=== PATIENT | male | born 1970 | race Caucasian/White ===

== ENCOUNTER 2016-11-02 08:08 | Emergency (ER) | payer OTHER ==
[2016-11-02] MEDS ORDERED: NITROGLYCERIN ONE (08:20)
[2016-11-02] MEDS ORDERED: HEPARIN ONE (08:20)
[2016-11-02 08:26] LABS: MANUAL DIFF NEEDED? NO
--- NOTE | 2016-11-02 08:26 | PROVIDER DOCUMENTATION ---
HPI-Chest Pain - General Chief Complaint: Chest Pain Stated Complaint: CHEST PAIN Time Seen by Provider: 11/02/16 08:20 Source: patient, family Allergies/Adverse Reactions: Patient Allergies Allergy/AdvReac Type Severity Reaction Status Date / Time No Known Allergies Allergy Verified 11/02/16 08:14 Home Medications: Home Medication List Medication Instructions Recorded Confirmed Last Taken Type ATORVAstatin [Lipitor] 40 mg PO DAILY 08/12/12 11/02/16 08/12/12 07:00 History Aspirin 81 mg PO DAILY 08/12/12 11/02/16 11/02/16 History Omeprazole [Prilosec] 20 mg PO DIRECTED 08/12/12 11/02/16 11/02/16 History - History of Present Illness-CP Nature of Presenting Problem: 30 minutes of chest pain 3 ntg also left arm getting better Location: reports: substernal Chest Pain Radiation: reports: arms Quality of Pain: reports: aching Severity in ED: moderate Onset/Duration: 1/2 hour ago Timing: still present, improving Context/Activities at Onset: reports: none Modifying Factors: improves with: other medication (ntg) Associated Symptoms: reports: diaphoresis, shortness of breath Nitro Today/Relief: 0.4 mg x 3 Aspirin Treatment Today: 325 mg x 1 Prior Chest Pain/Cardiac Workup: reports: heart attack Similar Symptoms Previously?: Yes Recently Seen Here or By Another Healthcare Provider: No Review of Systems - Adult - REVIEW OF SYSTEMS - ADULT Constitutional: reports: no symptoms reported Eyes: reports: no symptoms reported Ears, Nose, Mouth & Throat: reports: no symptoms reported Cardiovascular: reports: chest pain Respiratory: reports: shortness of breath Gastrointestinal: reports: no symptoms reported. denies: nausea Genitourinary: reports: no symptoms reported Musculoskeletal: reports: no symptoms reported Integumentary: reports: no symptoms reported Neurological: reports: no symptoms reported Psychiatric: reports: no symptoms reported Endocrine: reports: no symptoms reported Hematologic/Lymphatic: reports: no symptoms reported Past History - Adult - PAST MEDICAL HISTORY-ADULT Review of Records: reports: Nursing Assessment Review, Medications Reviewed, Social history reviewed & non-contributory. Major Childhood Illnesses: reports: denies history Cardiovascular: reports: cardiac disease, angina, CAD, HTN, hyperlipidemia Respiratory: reports: COPD Gastrointestinal: reports: denies history Genitourinary: reports: denies history Musculoskeletal: reports: denies history Neurological: reports: denies history Psychiatric: reports: denies history Endocrine/Immune: reports: denies history Other Conditions: reports: denies history - PRIOR SURGERIES/PROCEDURES Surgical/Procedure History: reports: none - SOCIAL HISTORY Smoking: cigarettes Physical Exam-General - PHYSICAL EXAM-ADULT Initial Vital Signs Reviewed: Yes - CONSTITUTIONAL General Appearance: moderate distress - EYES Eyes: PERRL/EOMI - HEAD, EARS, NOSE, MOUTH & THROAT HENMT: normocephalic/atraumatic - NECK Neck: supple - RESPIRATORY Respiratory: lungs clear - CARDIOVASCULAR Cardiovascular: regular rate, rhythm - GASTROINTESTINAL (ABDOMEN) Abdominal Exam: soft - LYMPHATIC Lymphatic: no adenopathy - MUSCULOSKELETAL Back Exam: normal inspection Extremity: normal range of motion Progress - EKG 1 Time of EKG reading by physician:: 08:25 EKG Read and Signed by:: Wellington Cleary EKG Interpretation (*Must complete 3 of following elements*): Abnormal Rate: 108 Rhythm: sinus tachycardia Man: normal QRS: Q Waves present SC Interval: normal ST Wave: elevated - XRAY 1 XRAY Study: Chest Impression: Abnormal (cardiomegaly) Departure - Departure Time of Disposition Order: 08:28 DIAGNOSIS: STEMI (ST elevation myocardial infarction) Disposition: [facility] 02 Certified Medical Emergency: Urgent Condition: Serious - Critical Care Note Total Time (mins): 30 Critical Care Statement: This patient required my direct personal management to treat or rule out processes, the absence of which, could potentiallly result in sudden, clinically significant life or limb threatening deterioration.
[2016-11-02 08:29] VITALS: BP 137/101
[2016-11-02] MEDS ORDERED: NITROGLYCERIN TOP ONE (08:33)
[2016-11-02] MEDS ORDERED: HEPARIN IV ONE (08:33)
[2016-11-02 08:36] LABS: BASO% 0.6 % (0.0-0.8); EOS# 0.21 X1000 (0.0-0.7); EOS% 1.8 % (0.0-10.0); HEMATOCRIT 46.9 % (42.0-52.0); HEMOGLOBIN 16.3 g/dL (14.0-18.0); IMM GRAN# 0.02 X1000 (0.0-0.04); IMM GRAN% 0.2 % (0.0-0.5); LYMPH# 5.06 X1000 (1.2-3.4); LYMPH% 44.3 % (20.5-51.1); MCH 32.7 PG (27-31); MCHC 34.8 g/dL (33-37); MCV 94.2 FL (81-99); MONO# 1.39 X1000 (0.11-0.59); MONO% 12.2 % (1.7-9.3); MPV 9.3 FL (7.4-10.4); NEUT% 40.9 % (42.2-75.2); PLT 309 X1000 (130-400); RBC 4.98 XMIL (4.7-6.1)
[2016-11-02 08:39] LABS: AGAP 14; ALKALINE PHOSPHATASE 105 U/L (32-122); BUN 8 mg/dL (8-22); CALCIUM 9.4 mg/dL (8.8-10.2); CHLORIDE 104 mmol/L (98-107); CK PROFILE 83 U/L (24-204); COSMO 281; GOT 35 U/L (10-34); GPT 50 U/L (10-44); POTASSIUM 3.5 mmol/L (3.5-5.1); SODIUM 140 mmol/L (136-145); TCO2 23 mmol/L (25-35); TOTAL PROTEIN 6.6 g/dL (6.3-8.3)
[2016-11-02 08:44] LABS: INR 1.04 (0.86-1.15); PROTIME 13.9 Seconds (12.1-15.5)
[2016-11-02 08:45] LABS: PTT PL 27.5 Seconds (22.6-43.9)
--- NOTE | 2016-11-02 09:00 | Diag Imaging Result Document ---
PROCEDURE NAME: CHEST-1 VIEW - 11/02/2016 PORTABLE CHEST: COMPARISON: Compared to 08/12/2012. FINDINGS: The lungs are well expanded. The heart is not enlarged. The vessels are not distended. No pneumonia. No pleural effusions identified. IMPRESSION: Negative chest.
--- NOTE | 2016-11-02 09:47 | EKG Report ---
Test Performed on : 11/02/2016 08:07:25 AM Test Reason : CP Blood Pressure : / mmHG Vent. Rate : 108 BPM Atrial Rate : 108 BPM P-R Int : 144 ms QRS Dur : 094 ms QT Int : 370 ms P-R-T Axes : 037 -02 101 degrees QTc Int : 495 ms Sinus tachycardia. Left ventricular hypertrophy with repolarization abnormality ST elevation, consider anterolateral injury or acute infarct ST elevation, consider inferior injury or acute infarct ACUTE CA / STEMI Consider right ventricular involvement in acute inferior infarct Abnormal ECG When compared with ECG of 12-AUG-2012 16:58, ST elevation now present in Inferior leads Non-specific change in ST segment in Lateral leads Nonspecific T wave abnormality no longer evident in Inferior leads T wave inversion less evident in Lateral leads Unconfirmed Result
== END 2016-11-02 08:35 | disposition short-term general hospital (02) ==
LOC: P.ED 08:08
DX: I21.3 ST elevation (STEMI) myocardial infarction of unspecified site (principal); R94.31 Abnormal electrocardiogram [ECG] [EKG]; R07.89 Other chest pain; R61 Generalized hyperhidrosis; R06.02 Shortness of breath; M79.602 Pain in left arm; I25.10 Atherosclerotic heart disease of native coronary artery without angina pectoris; I10 Essential (primary) hypertension; E78.5 Hyperlipidemia, unspecified; J44.9 Chronic obstructive pulmonary disease, unspecified; F17.210 Nicotine dependence, cigarettes, uncomplicated; Z79.82 Long term (current) use of aspirin; Z79.899 Other long term (current) drug therapy
CPT/HCPCS: 71010; 80053; 82550; 83735; 83880; 84484; 85025; 85379; 85610; 85730; 93005; 96374; J1644